=== PATIENT | female | born 2005 | race Hispanic/Latino ===

== ENCOUNTER 2023-02-24 19:08 | Emergency (ER) | payer OTHER, SELFPAY ==
[2023-02-24 20:10] VITALS: BP 137/92; PULSE 87; RESP 14; TEMP 37.1; O2SAT 100
[2023-02-24 21:39] VITALS: BP 117/68; PULSE 87; RESP 16; TEMP 37.3; O2SAT 100
--- NOTE | 2023-02-25 00:46 | ED.EAR ---
HPI - Ear Problem General Chief complaint: Ear Stated complaint: ear pain Time Seen by Provider: 02/24/23 23:58 Source: patient Mode of arrival: ambulatory Limitations: no limitations History of Present Illness HPI Narrative: Patient is a 17-year-old female who presents ED with report of left ear pain. Patient reports having pain in her left ear since Thursday. She states the pain was mild at first but has continued to worsen. She has not taken anything for pain. Denies any drainage from her ear. Denies fevers, cough, congestion, rhinorrhea. Related Data Allergies Allergy/AdvReac Type Severity Reaction Status Date / Time No Known Allergies Allergy Verified 02/25/23 00:49 Review of Systems Review of Systems: CONSTITUTIONAL: Denies fever, chills, or sweats. ENT: See HPI. CARDIOVASCULAR: Denies chest pain. RESPIRATORY: Denies cough or dyspnea. GASTROINTESTINAL: Denies abdominal pain, nausea, vomiting. All systems reviewed & are unremarkable except as noted in HPI and below Exam Narrative: GENERAL: Well appearing, well-nourished, non-toxic, in no acute distress. HEAD: Normocephalic, atraumatic. ENT: L EAC mildly swollen, yellow/white debris seen in ear canal. Debris covering TM, unable to visualize. Discomfort and tenderness reported with any manipulation of ear pinna, palpation of tragus. NECK: Supple. No adenopathy, no masses. RESPIRATORY: Airway patent, respirations nonlabored. CARDIOVASCULAR: Regular rate and rhythm without murmurs, rubs, or gallops. Radial pulses 2+ and equal bilaterally. MUSCULOSKELETAL: Moves all extremities. Strength/ROM intact without gross deformities. SKIN: Warm, dry, normal color. No rashes. NEURO: A&O X3. Speech clear. Cranial nerves II-XII grossly intact. Steady gait. No ataxic movements. PSYCHIATRIC: Appropriate mood and affect. Normal interaction. Course Vital Signs Vital signs: Vital Signs Temperature 98.8 F 02/24/23 20:10 Pulse Rate 87 02/24/23 20:10 Respiratory Rate 14 02/24/23 20:10 Blood Pressure 137/92 H 02/24/23 20:10 Pulse Oximetry 100 02/24/23 20:10 Oxygen Delivery Room Air 02/24/23 20:10 Temperature 99.2 F 02/24/23 21:39 Pulse Rate 87 02/24/23 21:39 Respiratory Rate 16 02/24/23 21:39 Blood Pressure 117/68 02/24/23 21:39 Pulse Oximetry 100 02/24/23 21:39 Oxygen Delivery Room Air 02/24/23 20:10 Medical Decision Making MDM Narrative Medical decision making narrative: Patient presented to ED with 2 to 3-day history of left ear pain. Exam consistent with otitis externa. Will start patient on ofloxacin ear drops. Advised Tylenol/ibuprofen. Will refer to ENT for further evaluation. Given return precautions. Discharged in stable condition. Medical Records Medical records reviewed: Yes I reviewed the external patient's medical records. Vital Signs Vital Signs: Vital Signs Temperature 98.8 F 02/24/23 20:10 Pulse Rate 87 02/24/23 20:10 Respiratory Rate 14 02/24/23 20:10 Blood Pressure 137/92 H 02/24/23 20:10 Pulse Oximetry 100 02/24/23 20:10 Oxygen Delivery Room Air 02/24/23 20:10 Temperature 99.2 F 02/24/23 21:39 Pulse Rate 87 02/24/23 21:39 Respiratory Rate 16 02/24/23 21:39 Blood Pressure 117/68 02/24/23 21:39 Pulse Oximetry 100 02/24/23 21:39 Oxygen Delivery Room Air 02/24/23 20:10 Discharge Plan Discharge Clinical Impression: Otitis externa Qualifiers: Otitis externa type: unspecified type Chronicity: acute Laterality: left Qualified Code(s): H60.502 - Unspecified acute noninfective otitis externa, left ear Patient Disposition: Home, Self-Care Condition: Stable Instructions: Antibiotic Form, Swimmer's Ear (ED), Earache (ED) Additional Instructions: Use eardrops as prescribed. Avoid putting any other objects into ear. Tylenol and ibuprofen as needed for pain. Follow-up with ENT for further evaluation. Return to the ED if you experience worsening
[2023-02-25 01:00] VITALS: BP 130/74; PULSE 90; RESP 19; O2SAT 100
[2023-02-25] MEDS: ACETAMINOPHEN 500 MG TABLET 1000 MG PO (01:04)
[2023-02-25] MEDS: IBUPROFEN 600 MG TABLET PO (01:05)
[2023-02-25] MEDS: OFLOXACIN 0.3% OPHTH SOLN 5 ML BTL 3 DROP LEFT EAR (01:05)
== END 2023-02-25 01:10 | disposition home or self-care (01) ==
PROVIDERS: Emergency Provider Physician Assistant; PCP Physician Assistant
DX: H60.502 Unspecified acute noninfective otitis externa, left ear (principal)
CPT/HCPCS: 99283; A9270